=== PATIENT | male | born 1965 | race Two or more races ===

== ENCOUNTER 2020-03-24 00:26 | Emergency (ER) | payer BC, SELFPAY ==
--- NOTE | ~2020-03-24 | XR_ITS ---
EXAMINATION: XR chest 2V EXAM DATE: 03/24/2020 02:35 INDICATION: Fever. TECHNIQUE: Frontal and lateral projections of the chest obtained and reviewed. Comparison is made to prior examination from 06/03/2005. FINDINGS: Scattered small ill-defined bilateral opacities, new compared to 2004. May indicate develo ping acute infectious process, possibly acute lung injury from SARS-CoV-2. Other infectious etiologie s also possible. No pneumothorax or pleural effusion. There are no osseous abnormalities identified. IMPRESSION: 1. Scattered small ill-defined opacities likely developing acute infectious process. Reviewed, dictated and finalized at location A. IMPRESSION: 1. Scattered small ill-defined opacities likely developing acute infectious pr ocess.
[2020-03-24 01:06] VITALS: BP 128/82; PULSE 90; RESP 12; TEMP 37.3; O2SAT 97
[2020-03-24 01:28] LABS: Basophils Percent Auto 0.2 % (0.2-1.2); Eosinophils Percent Auto 0.6 % (0-4.4); Hematocrit 46.1 % (42.0-52.0); Hemoglobin 15.7 g/dL (14.0-18.0); Immature Granulocyte Absolute 0.02 K/mm3 (0.00-0.031); Immature Granulocyte Percent A 0.4 % (0-0.5); Lymphocytes Absolute Auto 1.24 K/mm3 (0.9-3.2); Lymphocytes Percent Auto 22.8 % (18.3-44.2); Mean Corpuscular HGB Conc 34.1 g/dl (32-36); Mean Corpuscular Hemoglobin 29.8 pg (26-34); Mean Corpuscular Volume 87.5 fl (80-100); Mean Platelet Volume 10.8 fl (7.4-10.4); Monocytes Absolute Auto 0.6 K/mm3 (0.1-0.6); Monocytes Percent Auto 10.6 % (2.6-8.5); Neutrophils Absolute Auto 3.6 K/mm3 (1.3-6.7); Neutrophils Percent Auto 65.4 % (45.5-73.1); Platelet Count Result 193 k/mm3 (150-375); Red Blood Count 5.27 M/mm3 (4.6-6.20); Red Cell Distribution Width 11.8 % (11.5-14.5); White Blood Count 5.5 K/mm3 (4.5-10.0)
[2020-03-24 01:40] LABS: Alanine Aminotransferase 32 U/L (4-50); Alkaline Phosphatase 56 U/L (38-126); Anion Gap 10 mmol/L (8-16); Aspartate Amino Transferase 34 U/L (17-59); Bilirubin,Total 0.6 mg/dL (0.2-1.3); Blood Urea Nitrogen 17 mg/dL (9-20); Calcium 9.2 mg/dL (8.4-10.2); Carbon Dioxide 25 mmol/L (22-30); Chloride 100 mmol/L (98-107); Estimated CRCL calculation 72 ml/min; Estimated Glomerular Filt Rate > 60; Glucose 137 mg/dL (75-110); Lipase 131 U/L (23-300); Potassium 4.1 mmol/L (3.4-5.0); Sodium 135 mmol/L (137-145)
[2020-03-24 02:30] LABS: Add Urine Microscopic? YES; Appearance Urine Clear (Clear); Bilirubin Urine Negative (Negative); Blood Urine Negative (Negative); Color Urine Amber (Yellow); Glucose Urine UA Negative (Negative); Ketones Urine Negative (Negative); Leukocyte Esterase Ur Negative LEU/UL (Negative); Mucus Urine Heavy /lpf; Nitrate Urine Negative (Negative); Protein Urine 1+ mg/dL (Negative); RBC Urine 0-2 /hpf (0-2); Squamous Epithelial Cell Urine Rare /hpf (Few); Urobilinogen Urine Negative mg/dL (<2.0); WBC Urine 0-3 /hpf
[2020-03-24 02:31] VITALS: BP 108/72; PULSE 83; RESP 19; O2SAT 98
[2020-03-24 02:32] LABS: Specific Grav Ur 1.038 (1.001-1.035)
[2020-03-24 03:33] VITALS: BP 109/72; PULSE 78; RESP 18; TEMP 37.7; O2SAT 96
--- NOTE | 2020-03-24 04:03 | ED.FEVER ---
HPI - Fever General Chief Complaint: Fever Stated Complaint: Fever Time Seen by Provider: 03/24/20 02:31 Source: RN notes reviewed History of Present Illness HPI Narrative: Patient presents emergency department from home for fever. Patient states he has been having intermittent fever for the past 10 days. States that the fever subjective in nature and that it will improve when he takes Tylenol. He states his only other associated symptom is some intermittent abdominal pain described as cramping but currently denies any abdominal pain. He denies any rhinorrhea, sore throat, cough, nausea vomiting diarrhea dysuria or any other symptoms.. Patient denies any symptoms at this time Related Data Allergies Allergy/AdvReac Type Severity Reaction Status Date / Time No Known Allergies Allergy Unverified 06/21/18 21:09 Review of Systems Review of Systems: Narrative: Gen.: D see HPI Eyes: Denies eye pain or visual change ENT: Denies congestion Respiratory: Denies shortness of breath or cough CV: Denies chest pain or palpitations GI: Denies abdominal pain nausea, emesis or diarrhea Musculoskeletal: Denies back pain or muscle pain Neuro: Denies numbness, tingling, weakness or focal weakness Skin: Denies rash Except as documented, all other systems reviewed and negative PMFSH Past Medical History Medical History (Updated 03/24/20 @ 04:08 by Andre Joiner DO) Patient denies significant medical history Social History Social History (Updated 03/24/20 @ 04:05 by Andre Joiner DO) Smoking status: Never smoker Gender identity (if verbalized by the patient): Male Exam Narrative: Exam Narrative: APPEARANCE: No acute distress, nontoxic, resting in bed EYES: EOMI HEENT: Normocephalic, atraumatic, nares patent RESPIRATORY: No respiratory distress Clear to auscultation bilaterally with no rhonchi wheezing or rales. CARDIOVASCULAR: Regular rate and rhythm without murmurs rubs or gallops. ABDOMINAL: Soft, nontender, nondistended, no rebound or guarding MUSCULOSKELETAl: Moves all extremities. No clubbing, cyanosis or edema. NEURO: Awake and alert x 3. Following commands, speech normal, no focal deficits SKIN:: Warm, dry. No rashes lesions or abrasions PSYCHIATRIC: Normal affect/mood, Course Course Emergency Course: Discussed with patient results of workup and diagnosis. Discussed need for follow-up with primary care, proper use of medication, and reasons to return to the emergency department. Patient understands and agrees to current treatment plan. Discussed with patient I would be swabbing him for COVID need for self isolation Vital Signs Vital signs: Vital Signs Temperature 99.1 F 03/24/20 01:06 Pulse Rate 90 03/24/20 01:06 Respiratory Rate 12 03/24/20 01:06 Blood Pressure 128/82 03/24/20 01:06 Pulse Oximetry 97 03/24/20 01:06 Temperature 99.8 F H 03/24/20 03:33 Pulse Rate 78 03/24/20 03:33 Respiratory Rate 18 03/24/20 03:33 Blood Pressure 109/72 03/24/20 03:33 Pulse Oximetry 96 03/24/20 03:33 MDM - Fever MDM Narrative Medical decision making narrative: Patient with intermittent fevers for the past 10 days on exam the patient currently has no complaints and is hemodynamically stable lab results show no elevation white blood cell count with normal lab results. At this time chest x-ray shows slightly increased patchy opacities bilaterally question possible COVID. This time will start antibiotics cover for pneumonia as well as obtain covert swab with follow-up as an outpatient Lab Data Result diagrams: 03/24/20 01:15 03/24/20 01:15 Labs: Lab Results 03/24/20 03/24/20 03/24/20 Range/Units 01:15 01:15 02:11 WBC 5.5 (4.5-10.0) K/mm3 RBC 5.27 (4.6-6.20) M/mm3 Hgb 15.7 (14.0-18.0) g/dL Hct 46.1 (42.0-52.0) % MCV 87.5 (80-100) fl MCH 29.8 (26-34) pg MCHC 34.1 (32-36) g/dl RDW 11.8 (11.5-14.5) % Plt Count 193
[2020-03-24] MEDS: AZITHROMYCIN 250 MG TABLET 500 MG PO (04:15)
[2020-03-24] MEDS: IBUPROFEN 600 MG TABLET PO (04:16)
== END 2020-03-24 04:41 | disposition home or self-care (01) ==
PROVIDERS: Emergency Provider Emergency Medicine
DX: R50.9 Fever, unspecified (principal); Z20.828 Contact with and (suspected) exposure to other viral communicable diseases
CPT/HCPCS: 36415; 71046; 80053; 81001; 83690; 85025; 99283; A9270

== ENCOUNTER 2020-03-26 20:03 | Emergency (ER) | payer BC, SELFPAY ==
--- NOTE | ~2020-03-26 | XR_ITS ---
EXAMINATION: XR chest 1V portable DATE: 03/26/2020 20:37 INDICATION: COVID 19. Shortness of breath. Chest pain. TECHNIQUE: frontal view of the chest was obtained. COMPARISON: Chest radiograph dated 03/24/2020 FINDINGS: No significant interval change in scattered mild patchy airspace opacities with lower lung predominan ce. No pleural effusion or pneumothorax. The cardiomediastinal silhouette is normal. Visualized bones and soft tissues are unremarkable. IMPRESSION: 1. No significant change in scattered mild patchy airspace opacities concerning for pneumonia with di fferential including atelectasis. Reviewed, dictated and finalized at location A. IMPRESSION: 1. No significant change in scattered mild patchy airspace opacities concerning for pneumonia with differential including atelectasis.
[2020-03-26 20:11] VITALS: BP 113/74; PULSE 83; RESP 18; TEMP 36.9; O2SAT 96
--- NOTE | 2020-03-26 20:15 | ECG_ITS ---
Measurements Intervals [place] Rate: 80 P: 56 ND: 129 QRS: 27 QRSD: 105 T: 22 QT: 354 QTc: 411 Interpretive Statements SINUS RHYTHM BASELINE ARTIFACT- I, III, AVR, AVL, AVF NORMAL ECG Electronically Signed On 03-27-2020 7:26:20 CDT by Prateek Maher D.O.
[2020-03-26 20:24] VITALS: PULSE 80; O2SAT 98
[2020-03-26 20:24] LABS: Basophils Percent Auto 0.3 % (0.2-1.2); Eosinophils Percent Auto 0.1 % (0-4.4); Hematocrit 43.6 % (42.0-52.0); Hemoglobin 14.8 g/dL (14.0-18.0); Immature Granulocyte Absolute 0.03 K/mm3 (0.00-0.031); Immature Granulocyte Percent A 0.4 % (0-0.5); Lymphocytes Absolute Auto 1.36 K/mm3 (0.9-3.2); Lymphocytes Percent Auto 20.1 % (18.3-44.2); Mean Corpuscular HGB Conc 33.9 g/dl (32-36); Mean Corpuscular Volume 88.4 fl (80-100); Mean Platelet Volume 10.3 fl (7.4-10.4); Monocytes Absolute Auto 0.6 K/mm3 (0.1-0.6); Monocytes Percent Auto 8.1 % (2.6-8.5); Neutrophils Absolute Auto 4.8 K/mm3 (1.3-6.7); Platelet Count Result 245 k/mm3 (150-375); Red Blood Count 4.93 M/mm3 (4.6-6.20); White Blood Count 6.8 K/mm3 (4.5-10.0)
--- NOTE | 2020-03-26 20:31 | ED.SOB ---
HPI - SOB/Dyspnea General Chief Complaint: Shortness of Breath/Dyspnea Stated Complaint: fatigue, covid Time Seen by Provider: 03/26/20 20:15 History of Present Illness HPI Narrative: Patient is a 55-year-old male who presents the ER with complaints of shortness of breath. Patient was seen in the emergency department a few days ago. He was swabbed for COVID after being diagnosed with pneumonia as well. He has been taking his azithromycin. His COVID test came back positive today. His family feels he is not drinking as much water as he should and is more weak and short of breath. No chest pain or chest pressure. He has had a couple episodes of diarrhea since starting the antibiotic. Reports decreased urination. Reports dry cough that is nonproductive. Related Data Home Medications Medication Instructions Recorded Confirmed albuterol sulfate INHALATION 03/26/20 aspirin 325 mg PO DAILY 03/26/20 03/26/20 montelukast 10 mg 03/26/20 Allergies Allergy/AdvReac Type Severity Reaction Status Date / Time No Known Allergies Allergy Verified 03/26/20 20:13 Review of Systems Review of Systems: All systems reviewed & are unremarkable except as noted in HPI and below Constitutional: Constitutional: Reports chills, Reports fatigue and Reports fever(s) ENT: Denies nasal congestion and Denies sore throat Cardiovascular: Cardiovascular: Denies chest pain, Denies rapid heart rate and Denies radiating jaw, neck or arm pain Respiratory: Respiratory: Reports cough, Reports dyspnea and Denies wheezing Gastrointestinal: Gastrointestinal: Denies abdominal pain, Reports diarrhea, Denies nausea and Denies vomiting PMFSH Past Medical History Medical History (Updated 03/26/20 @ 21:47 by Nabeel Regalado MD) Patient denies significant medical history Surgical History Surgical History (Updated 03/26/20 @ 20:33 by Nabeel Regalado MD) No history of previous surgery Social History Social History (Updated 03/24/20 @ 04:05 by Andre Joiner DO) Smoking status: Never smoker Gender identity (if verbalized by the patient): Male Exam Narrative: Exam Narrative: GENERAL: Well-appearing, well-nourished, and in no acute distress. HEAD: Normocephalic, atraumatic. CHEST: Clear to auscultation. No respiratory distress. HEART: Regular rate and rhythm. Normal peripheral pulses. ABDOMEN: Soft, nontender, nondistended. EXTREMITIES: Normal range of motion. No edema. NEURO: Alert and oriented x3. PSYCH: Normal mood and affect. Course Course Emergency Course: Labs unremarkable. Chest x-ray unchanged. Patient and family informed of results. Will discharge with albuterol help with any shortness of breath he may be having. No wheezing on exam here. Vital Signs Vital signs: Vital Signs Temperature 98.4 F 03/26/20 20:11 Pulse Rate 83 03/26/20 20:11 Respiratory Rate 18 03/26/20 20:11 Blood Pressure 113/74 03/26/20 20:11 Pulse Oximetry 96 03/26/20 20:11 Temperature 98.4 F 03/26/20 20:11 Pulse Rate 80 03/26/20 20:24 Respiratory Rate 18 03/26/20 20:11 Blood Pressure 113/74 03/26/20 20:11 Pulse Oximetry 98 03/26/20 20:24 MDM - SOB/Dyspnea Lab Data Result diagrams: 03/26/20 20:18 03/26/20 20:18 Labs: Lab Results 03/26/20 03/26/20 03/26/20 Range/Units 20:18 20:18 20:54 WBC 6.8 (4.5-10.0) K/mm3 RBC 4.93 (4.6-6.20) M/mm3 Hgb 14.8 (14.0-18.0) g/dL Hct 43.6 (42.0-52.0) % MCV 88.4 (80-100) fl MCH 30.0 (26-34) pg MCHC 33.9 (32-36) g/dl RDW 12.0 (11.5-14.5) % Plt Count 245 (150-375) k/mm3 MPV 10.3 (7.4-10.4) fl Immature Gran % (Auto) 0.4 (0-0.5) % Neut % (Auto) 71.0 (45.5-73.1) % Lymph % (Auto) 20.1 (18.3-44.2) % Wolfe % (Auto) 8.1 (2.6-8.5) % Eos % (Auto) 0.1 (0-4.4) % Baso % (Auto) 0.3 (0.2-1.2) % Lymph # (Auto) 1.36 (0.9-3.2) K/mm3 Wolfe # (Auto) 0.6 (0.1-0.6)
[2020-03-26 20:35] LABS: Anion Gap 7 mmol/L (8-16); Blood Urea Nitrogen 12 mg/dL (9-20); Carbon Dioxide 30 mmol/L (22-30); Chloride 101 mmol/L (98-107); Estimated CRCL calculation 48 ml/min; Estimated Glomerular Filt Rate > 60; Glucose 125 mg/dL (75-110); Sodium 138 mmol/L (137-145)
[2020-03-26] MEDS: SODIUM CHLORIDE 0.9% IV 1,000 ML 999 ML IV CONT (20:40)
[2020-03-26 21:09] LABS: Add Urine Microscopic? YES; Appearance Urine Cloudy (Clear); Bilirubin Urine Negative (Negative); Blood Urine Negative (Negative); Color Urine Yellow (Yellow); Glucose Urine UA Negative (Negative); Ketones Urine Trace mg/dL (Negative); Leukocyte Esterase Ur Trace LEU/UL (Negative); Mucus Urine Heavy /lpf; Nitrate Urine Negative (Negative); Protein Urine 2+ mg/dL (Negative); RBC Urine 0-2 /hpf (0-2); Squamous Epithelial Cell Urine Rare /hpf (Few); Urobilinogen Urine Negative mg/dL (<2.0)
[2020-03-26 21:16] LABS: Specific Grav Ur 1.031 (1.001-1.035)
[2020-03-26 22:13] VITALS: BP 105/69; PULSE 87; RESP 18; O2SAT 95
== END 2020-03-26 22:14 | disposition home or self-care (01) ==
PROVIDERS: Emergency Provider Emergency Medicine
DX: U07.1 COVID-19 (principal); R91.8 Other nonspecific abnormal finding of lung field
CPT/HCPCS: 36415; 71045; 80048; 81001; 85025; 93005; 96360; 99284; J7030